=== PATIENT | female | born 1975 | race Caucasian/White ===

== ENCOUNTER 2016-08-27 00:10 | Inpatient (IN) | payer OTHER ==
[~2016-08-27] VITALS: Ht 165.1 cm; Wt 82.2 kg
[~2016-08-27 00:10] MED LIST: ANAPROX DS550 M1 PO; ANTIVERT25 MG PO; BACLOFEN20 MG PO; BENTYL20 MG PO; CIPRO500 MG PO; CYCLOBENZAPRINE10 MG PO; DILAUDID2 MG PO; ERGOCALCIF50000 UNIT PO; FENTANYL1 EAC4 TD; FLAGYL500 MG PO; FLEXERIL10 MG PO; HYCODAN SYRUP480 ML PO; LISINOPRIL10 MG PO; MEGA BIOTIN10000 MCG PO; MOBIC7.5 MG PO; MS CONTIN,ORAMO15 M1 PO; NAPROSYN500 MG PO; OMEPRAZOLE40 M1 PO; OXYCODONE HCL15 MG PO; PERCOCET 10/1 TABLET PO; PERCOCET 7.51 TABLET PO; PREDNISONE20 MG PO; PREMARIN0.625 MG PO; PROAIR HFA8.5 GM; PROAIR HFA8.5 GM IH; SINGULAIR10 MG PO; SYMBICORT60 INHALAT IH; TIZANIDINE HCL2 MG PO; TRAMADOL HCL50 MG PO; ULTRAM50 MG PO; VITAMIN D22000 UNIT PO; VITAMIN D250000 UNIT PO; Vitamin D PO; ZITHROMAX Z-PA250 MG PO; ZOCOR20 MG PO; ZOFRAN4 MG PO
[2016-08-27 01:31] LABS: HEMATOCRIT 42.2 % (36.0-46.0); MCH 31.7 PG (29.0-34.0); MCHC 33.9 G/DL (30.0-36.0); MCV 93.6 FL (83-99); MEAN PLAT.VOLUME 9.8 uM^3 (9.5-12.4); PLATELET COUNT 244 K/uL (156-360); RBC DIS.WIDTH-CV 12.9 % (11.8-14.6); RBC DIS.WIDTH-SD 42.7 % (39-53); RED BLOOD COUNT 4.51 M/uL (3.80-5.20); WHITE BLOOD COUNT 5.6 K/uL (4.1-10.2)
[2016-08-27 01:40] LABS: CHLORIDE 105 mEq/L (99-109); POTASSIUM 3.8 mEq/L (3.7-5.4); SODIUM 140 mEq/L (136-147)
[2016-08-27 01:42] LABS: GLUCOSE 98 mg/dL (70-99)
[2016-08-27 01:43] LABS: ANION GAP 13 MEQ/L (2-14)
[2016-08-27 01:45] LABS: GFR ESTIMATE (CALCULATED) > 59 mL/min/
[2016-08-27 01:46] LABS: UREA NITROGEN (BUN) 10 mg/dL (9-23)
[2016-08-27 01:56] LABS: QUANTITATIVE HCG < 4.0 MIU/ML
[2016-08-27 08:06] VITALS: BP 141/86
[2016-08-27 08:45] LABS: EOSINOPHIL (%) 0 % (0-5); HEMATOCRIT 38.8 % (36.0-46.0); IMMATURE GRANULOCYTE (%) 0.1 % (0.0-0.7); LYMPHOCYTE COUNT 0.5 K/uL (1.0-2.8); MCH 31.7 PG (29.0-34.0); MEAN PLAT.VOLUME 10.3 uM^3 (9.5-12.4); MONOCYTE (%) 0.6 % (3-12); MONOCYTE COUNT 0.1 K/uL (0-0.8); NEUTROPHIL (%) 92.4 % (45-76); NEUTROPHIL COUNT 7.2 K/uL (1.8-6.4); PLATELET COUNT 232 K/uL (156-360); RBC DIS.WIDTH-SD 45.8 % (39-53); RED BLOOD COUNT 4.04 M/uL (3.80-5.20); WHITE BLOOD COUNT 7.8 K/uL (4.1-10.2)
[2016-08-27 09:12] LABS: ANION GAP 14 MEQ/L (2-14); CHLORIDE 106 MEQ/L (99-109); GFR ESTIMATE (CALCULATED) > 59 mL/min/; POTASSIUM 4.4 MEQ/L (3.7-5.4); SAMPLE HEMOLYSIS CHECK 2; SAMPLE ICTERIC CHECK 0; SAMPLE LIPEMIA CHECK 0; SODIUM 139 MEQ/L (136-147); UREA NITROGEN (BUN) 10 mg/dL (9-23)
[2016-08-27 09:19] LABS: GLUCOSE 191 mg/dL (70-99)
[2016-08-27 12:00] VITALS: BP 157/79
[2016-08-27] MEDS ORDERED: MOBIC15 MG PO (13:15)
[2016-08-27] MEDS ORDERED: ALBUTEROL2.5 MG/3 M IH (13:17)
[2016-08-27] MEDS ORDERED: BENTYL20 MG PO (13:18)
[2016-08-27 16:00] VITALS: BP 118/68
[2016-08-27 19:50] VITALS: BP 151/69
[2016-08-27 23:52] VITALS: BP 149/86
[2016-08-28 03:22] VITALS: BP 138/77
[2016-08-28 08:00] VITALS: BP 153/67
[2016-08-28 16:11] VITALS: BP 110/58
[2016-08-28 23:56] VITALS: BP 136/84
[2016-08-29 08:00] VITALS: BP 166/85
[2016-08-29 16:06] VITALS: BP 150/81
[2016-08-29 23:29] VITALS: BP 152/68
[2016-08-30 07:00] VITALS: BP 160/94
[2016-08-30 07:38] LABS: ANION GAP 16 MEQ/L (2-14); CHLORIDE 98 MEQ/L (99-109); GFR ESTIMATE (CALCULATED) > 59 mL/min/; GLUCOSE 156 mg/dL (70-99); POTASSIUM 4.5 MEQ/L (3.7-5.4); SAMPLE HEMOLYSIS CHECK 1; SAMPLE ICTERIC CHECK 0; SAMPLE LIPEMIA CHECK 1; SODIUM 138 MEQ/L (136-147); UREA NITROGEN (BUN) 19 mg/dL (9-23)
[2016-08-30 07:43] LABS: EOSINOPHIL (%) 0 % (0-5); HEMATOCRIT 42.7 % (36.0-46.0); IMMATURE GRANULOCYTE (%) 3.2 % (0.0-0.7); IMMATURE GRANULOCYTE COUNT 0.7 K/uL; LYMPHOCYTE COUNT 1.7 K/uL (1.0-2.8); MCH 31.4 PG (29.0-34.0); MCHC 32.6 G/DL (30.0-36.0); MCV 96.6 FL (83-99); MEAN PLAT.VOLUME 10.2 uM^3 (9.5-12.4); MONOCYTE (%) 4.4 % (3-12); NEUTROPHIL (%) 84.5 % (45-76); NEUTROPHIL COUNT 18.6 K/uL (1.8-6.4); RBC DIS.WIDTH-CV 13.2 % (11.8-14.6); RBC DIS.WIDTH-SD 46.6 % (39-53); RED BLOOD COUNT 4.42 M/uL (3.80-5.20)
[2016-08-30 07:50] LABS: PLATELET COUNT 319 K/uL (156-360)
[2016-08-30 08:22] LABS: HEMATOLOGY COMMENT 1 REV; USER ID NJR
[2016-08-30 10:05] LABS: INTERNAL CONTROL VALID? YES
[2016-08-30 10:30] LABS: D-DIMER ELISA 0.23 mg/L FEU (< 0.57)
[2016-08-30 15:16] VITALS: BP 148/87
[2016-08-30 19:21] VITALS: BP 170/98
[2016-08-30 23:27] VITALS: BP 173/98
[2016-08-31 07:37] LABS: HEMATOCRIT 41.2 % (36.0-46.0); MCH 30.2 PG (29.0-34.0); MCV 94.3 FL (83-99); PLATELET COUNT 308 K/uL (156-360); RBC DIS.WIDTH-CV 12.8 % (11.8-14.6); RBC DIS.WIDTH-SD 44.4 % (39-53); RED BLOOD COUNT 4.37 M/uL (3.80-5.20); WHITE BLOOD COUNT 16.7 K/uL (4.1-10.2)
[2016-08-31 08:09] LABS: ALKALINE PHOSPHATASE 53 IU/L (3-129); ANION GAP 12 MEQ/L (2-14); CHLORIDE 97 MEQ/L (99-109); GFR ESTIMATE (CALCULATED) > 59 mL/min/; GLUCOSE 141 mg/dL (70-99); POTASSIUM 4.6 MEQ/L (3.7-5.4); SAMPLE HEMOLYSIS CHECK 0; SAMPLE ICTERIC CHECK 0; SAMPLE LIPEMIA CHECK 0; SODIUM 137 MEQ/L (136-147); TOTAL BILIRUBIN 0.2 MG/DL (0.0-1.0); UREA NITROGEN (BUN) 18 mg/dL (9-23)
[2016-08-31 08:20] VITALS: BP 182/94
[2016-08-31 08:21] LABS: ABS NEUTROPHIL COUNT 13.34; BASOPHIL COUNT 0.1 K/uL (0-0.1); EOSINOPHIL (%) 0.1 % (0-5); IMMATURE GRANULOCYTE (%) 9.5 % (0.0-0.7); IMMATURE GRANULOCYTE COUNT 1.6 K/uL; LYMPHOCYTE COUNT 1.7 K/uL (1.0-2.8); MONOCYTE (%) 4.9 % (3-12); MONOCYTE COUNT 0.8 K/uL (0-0.8); NEUTROPHIL (%) 74.7 % (45-76); NEUTROPHIL COUNT 12.5 K/uL (1.8-6.4); PLAT.SUFFICIENCY ADEQUATE
[2016-08-31] MEDS ORDERED: LISINOPRIL20 MG PO (09:03)
[2016-08-31] MEDS ORDERED: AMLODIPINE BESYL5 MG PO (09:03)
[2016-08-31] MEDS ORDERED: SPIRIVA RESPIMAT4 GM IH (09:05)
[2016-08-31] MEDS ORDERED: Vitamin B-12 SL (09:05)
[2016-08-31] MEDS ORDERED: PREDNISONE10 MG PO (09:05)
[2016-08-31] MEDS ORDERED: SYMBICORT60 INHALAT IH (09:12)
[2016-08-31] MEDS ORDERED: ALPRAZOLAM0.25 M2 PO ×2 (09:20→09:21)
[2016-08-31 10:27] VITALS: BP 178/84
== END 2016-08-31 13:05 | disposition home or self-care (01) | DRG 191 ==
LOC: EME 00:10 → EDOF 05:42 → 2EASTP 06:58 → 2EAST 12:06
PROVIDERS: Hospitalist; Internal Medicine
DX: J44.0 Chronic obstructive pulmonary disease with (acute) lower respiratory infection (principal); J20.9 Acute bronchitis, unspecified; J44.1 Chronic obstructive pulmonary disease with (acute) exacerbation; J45.901 Unspecified asthma with (acute) exacerbation; I10 Essential (primary) hypertension; E53.8 Deficiency of other specified B group vitamins; G89.29 Other chronic pain; M25.551 Pain in right hip; G43.909 Migraine, unspecified, not intractable, without status migrainosus; E78.00 Pure hypercholesterolemia, unspecified; E78.5 Hyperlipidemia, unspecified; F41.9 Anxiety disorder, unspecified; F17.290 Nicotine dependence, other tobacco product, uncomplicated; M19.90 Unspecified osteoarthritis, unspecified site; Z85.41 Personal history of malignant neoplasm of cervix uteri; Z85.44 Personal history of malignant neoplasm of other female genital organs; Z85.3 Personal history of malignant neoplasm of breast
CPT/HCPCS: 71020; 80048; 80048 91; 80053; 83605; 83880; 84702; 85025; 85027; 85379; 87040; 87070; 87205; 87449; 94640; 94640 76; 94644; 94799; 99202; 99281; 99285; J0456; J0696; J1644; J2270; J2920; J2930; J7030; J7050

== ENCOUNTER 2016-11-14 14:56 | Emergency (ER) | payer OTHER ==
[~2016-11-14] VITALS: Ht 165.1 cm; Wt 83.0 kg
[~2016-11-14 14:56] MED LIST changes: +ALBUTEROL2.5 MG/3 M IH; +ALPRAZOLAM0.25 M2 PO; +AMLODIPINE BESYL5 MG PO; +LISINOPRIL20 MG PO; +MOBIC15 MG PO; +PREDNISONE10 MG PO; +SPIRIVA RESPIMAT4 GM IH; +Vitamin B-12 SL
[2016-11-14 15:43] LABS: HEMATOCRIT 41.7 % (36.0-46.0); MCH 30.8 PG (29.0-34.0); MCHC 33.3 G/DL (30.0-36.0); MCV 92.5 FL (83-99); MEAN PLAT.VOLUME 9.5 uM^3 (9.5-12.4); PLATELET COUNT 346 K/uL (156-360); RBC DIS.WIDTH-CV 12.3 % (11.8-14.6); RBC DIS.WIDTH-SD 42.3 % (39-53); RED BLOOD COUNT 4.51 M/uL (3.80-5.20); WHITE BLOOD COUNT 6.4 K/uL (4.1-10.2)
[2016-11-14 15:55] LABS: CHLORIDE 103 mEq/L (99-109); POTASSIUM 4.2 mEq/L (3.7-5.4); SODIUM 138 mEq/L (136-147)
[2016-11-14 15:57] LABS: GLUCOSE 100 mg/dL (70-99)
[2016-11-14 15:58] LABS: ANION GAP 10 MEQ/L (2-14)
[2016-11-14 15:59] LABS: TOTAL BILIRUBIN 0.2 mg/dL (0.0-1.0)
[2016-11-14 16:00] LABS: ALKALINE PHOSPHATASE 64 IU/L (3-129)
[2016-11-14 16:01] LABS: GFR ESTIMATE (CALCULATED) > 59 mL/min/
[2016-11-14 16:02] LABS: UREA NITROGEN (BUN) 10 mg/dL (9-23)
[2016-11-14 16:10] LABS: D-DIMER ELISA 0.37 mg/L FEU (< 0.57)
[2016-11-14 16:13] LABS: ADD MIUA? YES; BILIRUBIN NEGATIVE; BLOOD SMALL; COLOR YELLOW ((YELLOW)); GLUCOSE (STRIP) NEGATIVE; KETONES NEGATIVE; LEUKOCYTES NEGATIVE; NITRITE NEGATIVE; PROTEIN (STRIP) NEGATIVE; SPECIFIC GRAVITY 1.016 (1.000-1.030); UROBILINOGEN 0.2 MG/DL (0.2-1.0)
[2016-11-14 16:28] LABS: BACTERIA RARE /HPF; EPITHELIAL CELLS 1+ /HPF; MUCUS 1+ /LPF; RED BLOOD CELLS 0-5 /HPF (0-5); UCUL ADDED? NO; WHITE BLOOD CELLS 0-5 /HPF (0-5)
[2016-11-14 17:12] VITALS: BP 114/80
== END 2016-11-14 17:13 | disposition home or self-care (01) ==
LOC: EME 14:56
PROVIDERS: Nurse Practitioner Family
DX: R60.0 Localized edema (principal); R35.8 Other polyuria; R63.1 Polydipsia; J44.9 Chronic obstructive pulmonary disease, unspecified; G89.29 Other chronic pain; Z79.891 Long term (current) use of opiate analgesic; Z79.890 Hormone replacement therapy; F17.200 Nicotine dependence, unspecified, uncomplicated; Z85.41 Personal history of malignant neoplasm of cervix uteri; Z85.3 Personal history of malignant neoplasm of breast
CPT/HCPCS: 71020; 80053; 81003; 83880; 85027; 85379; 93005; 99281; 99284

== ENCOUNTER → 2016-12-06 | Outpatient (CLI) | payer OTHER | END | disposition home or self-care (01) | LOC: RAD 09:26 | DX: Z02.71 Encounter for disability determination (principal) | CPT/HCPCS: 71020 ==

== ENCOUNTER 2016-12-31 01:00 | Emergency (ER) | payer OTHER ==
[~2016-12-31] VITALS: Ht 165.1 cm; Wt 79.2 kg
[2016-12-31] MEDS ORDERED: LIDOCAINE700 MG TD (01:35)
[2016-12-31] MEDS ORDERED: ROXICODONE15 MG PO (01:35)
[2016-12-31] MEDS ORDERED: TESSALON PERLE100 MG PO (01:36)
[2016-12-31] MEDS ORDERED: PREMARIN0.625 MG PO (01:36)
[2016-12-31] MEDS ORDERED: INCRUSE ELLI62.5 MCG IH (01:36)
[2016-12-31] MEDS ORDERED: PRILOSEC20 MG PO (01:36)
[2016-12-31] MEDS ORDERED: MOTRIN800 MG PO (01:37)
[2016-12-31] MEDS ORDERED: BELBUCA150 MCG BC (01:37)
[2016-12-31] MEDS ORDERED: CATAPRES0.2 MG PO (01:37)
[2016-12-31] MEDS ORDERED: LIPITOR20 MG PO (01:37)
[2016-12-31] MEDS ORDERED: SYMBICORT60 INHALAT IH (01:37)
[2016-12-31] MEDS ORDERED: SPIRIVA RESPIMAT4 GM IH (01:38)
[2016-12-31] MEDS ORDERED: CYANOCOBALAM1000 MCG PO (01:38)
[2016-12-31] MEDS ORDERED: NEURONTIN300 MG PO (01:38)
[2016-12-31] MEDS ORDERED: MOBIC15 MG PO (01:38)
[2016-12-31] MEDS ORDERED: ZANTAC300 MG PO (01:39)
[2016-12-31] MEDS ORDERED: ERGOCALCIF50000 UNIT PO (01:39)
[2016-12-31] MEDS ORDERED: NORVASC5 MG PO (01:39)
[2016-12-31] MEDS ORDERED: ZANAFLEX6 MG PO (01:39)
[2016-12-31] MEDS ORDERED: FLONASE16 G1 BOTH NARES (01:39)
[2016-12-31] MEDS ORDERED: ONE DAILY FOR1 EAC1 PO (01:39)
[2016-12-31] MEDS ORDERED: VENTOLIN HFA18 GM IH (01:40)
[2016-12-31] MEDS ORDERED: BENTYL20 MG PO ×2 (01:40→04:27)
[2016-12-31] MEDS ORDERED: DESYREL100 MG PO (01:40)
[2016-12-31] MEDS ORDERED: SINGULAIR10 MG PO (01:40)
[2016-12-31] MEDS ORDERED: POTASSIUM GLUCO2 MEQ PO (01:40)
[2016-12-31] MEDS ORDERED: BIOTIN1000 MCG PO (01:41)
[2016-12-31] MEDS ORDERED: PROVENTIL,2.5 MG/3 M IH (01:41)
[2016-12-31] MEDS ORDERED: ARYMO ER30 MG PO (01:41)
[2016-12-31] MEDS ORDERED: ATARAX,VISTARIL50 MG PO (01:41)
[2016-12-31] MEDS ORDERED: DUONEB 2.5-0.5 M3 ML AEROSOL (01:42)
[2016-12-31 02:13] LABS: ADD MIUA? NO; BILIRUBIN NEGATIVE; BLOOD NEGATIVE; COLOR YELLOW ((YELLOW)); GLUCOSE (STRIP) NEGATIVE; KETONES NEGATIVE; LEUKOCYTES NEGATIVE; NITRITE NEGATIVE; PROTEIN (STRIP) 30; SPECIFIC GRAVITY 1.023 (1.000-1.030); UCUL ADDED? NO; UROBILINOGEN 0.2 MG/DL (0.2-1.0)
[2016-12-31 02:42] LABS: MCH 30.7 PG (29.0-34.0); MCHC 33.6 G/DL (30.0-36.0); MCV 91.3 FL (83-99); MEAN PLAT.VOLUME 9.5 uM^3 (9.5-12.4); PLATELET COUNT 322 K/uL (156-360); RBC DIS.WIDTH-CV 13.1 % (11.8-14.6); RBC DIS.WIDTH-SD 43.8 % (39-53); WHITE BLOOD COUNT 6.2 K/uL (4.1-10.2)
[2016-12-31 02:55] LABS: CHLORIDE 105 mEq/L (99-109); POTASSIUM 3.7 mEq/L (3.7-5.4); SODIUM 142 mEq/L (136-147)
[2016-12-31 02:57] LABS: GLUCOSE 107 mg/dL (70-99)
[2016-12-31 02:58] LABS: ANION GAP 13 MEQ/L (2-14)
[2016-12-31 02:59] LABS: TOTAL BILIRUBIN 0.2 mg/dL (0.0-1.0)
[2016-12-31 03:00] LABS: ALKALINE PHOSPHATASE 63 IU/L (3-129)
[2016-12-31 03:01] LABS: GFR ESTIMATE (CALCULATED) > 59 mL/min/
[2016-12-31 03:02] LABS: UREA NITROGEN (BUN) 14 mg/dL (9-23)
[2016-12-31 03:04] LABS: LIPASE 40 U/L (1.0-51.0)
[2016-12-31 03:10] LABS: QUANTITATIVE HCG < 4.0 MIU/ML
[2016-12-31] MEDS ORDERED: ZOFRAN8 MG PO (04:27)
[2016-12-31] MEDS ORDERED: FAMOTIDINE20 MG PO (04:46)
[2016-12-31 05:23] VITALS: BP 139/64
== END 2016-12-31 05:25 | disposition home or self-care (01) ==
LOC: EME 01:00
PROVIDERS: Emergency Medicine
DX: K59.00 Constipation, unspecified (principal); R11.2 Nausea with vomiting, unspecified; I10 Essential (primary) hypertension; Z85.41 Personal history of malignant neoplasm of cervix uteri; F17.200 Nicotine dependence, unspecified, uncomplicated; Z88.6 Allergy status to analgesic agent
CPT/HCPCS: 74177; 80053; 81003; 83690; 84702; 85027; 99281; 99285; J1200; J2270; J2405; J7030; S0028

== ENCOUNTER 2017-06-11 15:28 | Emergency (ER) | payer OTHER ==
[~2017-06-11] VITALS: Ht 165.1 cm; Wt 75.5 kg
[~2017-06-11 15:28] MED LIST changes: +ARYMO ER30 MG PO; +ATARAX,VISTARIL50 MG PO; +BELBUCA150 MCG BC; +BIOTIN1000 MCG PO; +CATAPRES0.2 MG PO; +CYANOCOBALAM1000 MCG PO; +DESYREL100 MG PO; +DUONEB 2.5-0.5 M3 ML AEROSOL; +FAMOTIDINE20 MG PO; +FLONASE16 G1 BOTH NARES; +INCRUSE ELLI62.5 MCG IH; +LIDOCAINE700 MG TD; +LIPITOR20 MG PO; +MOTRIN800 MG PO; +NEURONTIN300 MG PO; +NORVASC5 MG PO; +ONE DAILY FOR1 EAC1 PO; +POTASSIUM GLUCO2 MEQ PO; +PRILOSEC20 MG PO; +PROVENTIL,2.5 MG/3 M IH; +ROXICODONE15 MG PO; +TESSALON PERLE100 MG PO; +VENTOLIN HFA18 GM IH; +ZANAFLEX6 MG PO; +ZANTAC300 MG PO; +ZOFRAN8 MG PO
[2017-06-11] MEDS ORDERED: MEDROL DOSEPAK4 MG PO (19:00)
[2017-06-11 19:06] VITALS: BP 172/117
== END 2017-06-11 19:07 | disposition home or self-care (01) ==
LOC: EME 15:28
DX: M54.5 Low back pain (principal); G89.29 Other chronic pain; J44.9 Chronic obstructive pulmonary disease, unspecified; I10 Essential (primary) hypertension; Z85.41 Personal history of malignant neoplasm of cervix uteri; F17.200 Nicotine dependence, unspecified, uncomplicated
CPT/HCPCS: 99281; 99283; J2930; J3010